=== PATIENT | female | born 1990 | race Hispanic/Latino ===

== ENCOUNTER 2025-05-07 10:30 | Inpatient (IN) | payer OTHER ==
[~2025-05-07] VITALS: Ht 160 cm; Wt 73.0 kg
[2025-05-07] VITALS (7 sets, daily range): BP systolic 107–115; BP diastolic 47–66; PULSE 16–86; RESP 18–20; TEMP 97.7–98.8; O2SAT 98–100
[2025-05-07 11:04] LABS: BASOPHILS % 0.8 % (0.0-1.0); EOSINOPHILS % 3.7 % (0.0-6.0); LYMPHOCYTES % 28.0 % (18.0-39.1); MONOCYTES % 6.0 % (4.4-11.3); NEUTROPHILS % 60.3 % (38.7-80.0); RED CELL DISTRIBUTION WIDTH 24.8 % (11.7-14.4)
[2025-05-07 11:26] LABS: EST GLOMERULAR FILTRATION RATE 112.0 ML/MIN (>=60)
[2025-05-07 12:09] LABS: ELLIPTOCYTE, RBC SLIGHT; PLATELET ESTIMATE ADEQUATE; PLATELET MORPHOLOGY COMMENT NORMAL; RBC MORPHOLOGY COMMENT ABNORMAL
[2025-05-08] VITALS (8 sets, daily range): BP systolic 109–117; BP diastolic 42–61; PULSE 78–90; RESP 16–19; TEMP 98–98.6; O2SAT 95–100
[2025-05-08] MEDS: SODIUM CHLORIDE 0.9% 250ML 250 ML ONE ×2 (11:13→22:55)
[2025-05-08] MEDS ORDERED: DIATRIZOATE MEGL/DIATRIZOA SOD 30 ML BTL PO ONE (15:32)
[2025-05-08] MEDS ORDERED: IOPAMIDOL 370 MG/ML 100 ML INFUS..BTL INJ ONE (15:32)
[2025-05-08 15:33] LABS: BASOPHILS % 0.5 % (0.0-1.0); EOSINOPHILS % 2.9 % (0.0-6.0); LYMPHOCYTES % 25.3 % (18.0-39.1); MONOCYTES % 7.7 % (4.4-11.3); NEUTROPHILS % 63.1 % (38.7-80.0); RED CELL DISTRIBUTION WIDTH 28.8 % (11.7-14.4)
[2025-05-08 15:55] LABS: EST GLOMERULAR FILTRATION RATE 116.0 ML/MIN (>=60)
[2025-05-08 15:56] LABS: % IRON SATURATION 5.0 % (15-50); CHOL/HDL RATIO 3.1 (3.0-3.6); LDL CHOLESTEROL 69.0 MG/DL (60-130)
[2025-05-08] MEDS: SODIUM CHLORIDE 0.9% 250ML 250 ML IV ONE ×2 (22:55→22:56)
[2025-05-08] MEDS: SODIUM CHLORIDE 0.9% 500ML 500 ML ONE (23:42)
[2025-05-09] VITALS: BP 104/62; PULSE 88; RESP 18; TEMP 98.2; O2SAT 100
[2025-05-09 06:37] VITALS: BP 111/64; PULSE 68; RESP 18; TEMP 98.5; O2SAT 100
[2025-05-09 07:36] VITALS: BP 108/64; PULSE 71; RESP 18; TEMP 98.2; O2SAT 99
[2025-05-09 08:10] VITALS: BP 108/64; PULSE 71; RESP 18; TEMP 98.2; O2SAT 99
[2025-05-09 08:13] LABS: BASOPHILS % 0.7 % (0.0-1.0); EOSINOPHILS % 3.3 % (0.0-6.0); LYMPHOCYTES % 26.2 % (18.0-39.1); MONOCYTES % 8.5 % (4.4-11.3); NEUTROPHILS % 60.9 % (38.7-80.0); RED CELL DISTRIBUTION WIDTH 28.9 % (11.7-14.4)
[2025-05-09 10:54] LABS: PLATELET ESTIMATE ADEQUATE; PLATELET MORPHOLOGY COMMENT NORMAL; RBC MORPHOLOGY COMMENT ABNORMAL
[2025-05-09 11:35] VITALS: BP 110/63; PULSE 73; RESP 18; TEMP 98.5; O2SAT 98
[2025-05-09 15:57] VITALS: BP 115/64; PULSE 66; RESP 18; TEMP 98.3; O2SAT 100
== END 2025-05-09 17:05 | disposition home or self-care (01) | DRG 812 ==
LOC: ER 10:34 → ERHOLD 11:24 → MED/SURG2 13:41
PROVIDERS: ADMIT Internal Medicine; ATTEND Internal Medicine
PROC: 30233N1 Transfusion of Nonautologous Red Blood Cells into Peripheral Vein, Percutaneous Approach (ICD-10-PCS; principal; 2025-05-08)
DX: D50.0 Iron deficiency anemia secondary to blood loss (chronic) (principal); C56.9 Malignant neoplasm of unspecified ovary; N92.0 Excessive and frequent menstruation with regular cycle; R16.1 Splenomegaly, not elsewhere classified; D75.839 Thrombocytosis, unspecified
CPT/HCPCS: 36415; 74177; 76830; 76856; 80048; 80061; 82728; 83036; 83540; 84443; 84466; 84702; 85025; 86850; 86870; 86880; 86900; 86905; 86920; 86922; 94799; 99001; 99284; J7040; J7050; P9016; Q9963; Q9967